=== PATIENT | male | born 1935 | race Caucasian/White ===

== ENCOUNTER 2017-11-24 13:00 | Inpatient (IN) | payer MEDICARE, OTHER ==
[2017-11-28] MEDS ORDERED: CELECOXIB 100 MG CAPSULE PO ONE ×2 (06:00→14:00)
[2017-11-28] MEDS ORDERED: MECLIZINE 25 MG TABLET PO ONE ×2 (06:00→14:00)
[2017-11-28] MEDS ORDERED: METOCLOPRAMIDE 10 MG TABLET PO ONE ×2 (06:00→14:00)
[2017-11-28] MEDS ORDERED: FAMOTIDINE 20MG TABLET PO ONE ×2 (06:00→14:00)
[2017-11-28] MEDS ORDERED: VANCOMYCIN HCL 1,000 MG in DEXTROSE 5 % IN WATER 250 ML IVPB ONE ×2 (06:00)
[2017-11-28] MEDS ORDERED: ACETAMINOPHEN 1,000 MG/100 ML BTL IV ONE ×2 (06:00→14:00)
[2017-11-28 06:51] LABS: ABO GROUP A; RH TYPE POSITIVE
[2017-11-28 06:52] LABS: ANTIBODY SCREEN NEGATIVE (NEGATIVE)
[2017-11-28] MEDS ORDERED: ACETAMINOPHEN W/ CODEINE 300MG/30MG TABLET PO PRN ×2 (08:27)
[2017-11-28] MEDS ORDERED: DIPHENHYDRAMINE HCL 25 MG CAPSULE PO PRN (08:27)
[2017-11-28] MEDS ORDERED: ACETAMINOPHEN W/ CODEINE 300MG/60MG TABLET PO PRN ×2 (08:27)
[2017-11-28] MEDS ORDERED: KETOROLAC 30 MG/ML VIAL IVP PRN ×2 (08:27)
[2017-11-28] MEDS ORDERED: HYDROMORPHONE HCL 2 MG/ML VIAL IM PRN ×2 (08:27)
[2017-11-28] MEDS ORDERED: ACETAMINOPHEN 325 MG TAB PO PRN (08:27)
[2017-11-28] MEDS ORDERED: MAGNESIUM HYDROXIDE 30 ML UDC PO PRN (08:27)
[2017-11-28] MEDS ORDERED: ZOLPIDEM TARTRATE 5 MG TABLET PO PRN (08:27)
[2017-11-28] MEDS ORDERED: ONDANSETRON HCL IV 4 MG/2 ML VIAL IVP PRN (08:27)
[2017-11-28] MEDS ORDERED: BISACODYL 10 MG SUPP RC PRN (08:27)
[2017-11-28] MEDS ORDERED: TRAMADOL HCL 50 MG TABLET PO PRN ×2 (08:27)
[2017-11-28] MEDS ORDERED: NALOXONE 0.4 MG/1 ML VIAL IVP PRN (08:27)
[2017-11-28] MEDS ORDERED: AL HYDROX/MAG HYDROX 30ML UD PO PRN (08:27)
[2017-11-28] MEDS ORDERED: METOCLOPRAMIDE HCL 10 MG/2 ML VIAL IVP PRN (08:27)
[2017-11-28] MEDS ORDERED: HYDROCODONE/APAP 5/325MG TABLET PO PRN ×2 (08:27)
[2017-11-28] MEDS ORDERED: PROMETHAZINE HCL 12.5 MG in 0.9 % SODIUM CHLORIDE 100ML 50 ML IVPB PRN (08:27)
[2017-11-28] MEDS ORDERED: DEXTROSE 5 % AND 0.9 % NACL 1,000 ML IV PRN (10:30)
[2017-11-28] MEDS: HYDROCODONE/APAP 7.5/325MG TABLET PO PRN ×4 (11:23→21:28)
--- NOTE | 2017-11-28 13:31 | Rehab Evaluation ---
Patient Information - Patient Information Diagnosis: R hip OA Ordered Treatment: PT Evaluate and Treat Status: Initial Evaluation Surgery: Yes (R LIZZIE) Date of Surgery: 11/28/17 Past Medical/Surgical Hx: PAST MEDICAL/SURGICAL HISTORY Past Surgical History c scope tonsils and adnoids EGD PMH - Respiratory Hx Respiratory Disorders Yes Comment: hx hayfever PMH - Cardiovascular Hx Cardiovascular Disorders Yes Exercise Tolerance Fair Comment: high cholesterol. activity limited due to hip pain PMH - Neuro Hx Neurological Disorders No PMH - GI Hx Gastrointestinal Disorders Yes Hx Gastroesophageal Reflux Yes Hx Ulcer Yes: esophageal 30 yrs ago Comment: hepatitis A antibodies PMH - Hx Genitourinary Disorders Yes Hx Bladder Problem Yes: frequent small amts on meds PMH - Endocrine Hx Endocrine Disorders No PMH - Musculoskeletal Hx Musculoskeletal Disorders Yes Hx Arthritis Yes: right hip Comment: severe right hip pain PMH - Psych Hx Psychiatric Problems Yes Hx Anxiety Yes: some related to hip pain PMH - Hematology/Oncology Hx Hematology/Oncology Yes Disorders Hx Blood Transfusion Reaction No Premorbid Status: Detail (Patient was previously IND with all mobility and transfers.) Social History: Detail (Patient lives in a two story home with his . Patient will not be using the second floor initially. There are 3 steps to enter the home with two hand rails. There is a walk in shower, and the patient owns a riser seat, grab bars, quad cane, and front wheeled walker.) Precautions: [place], Fall, Other (WBAT on R LE. Hip percautions.) - Time With Patient Total Time Spent With Patient (Min): 30 Treatment Procedures: Detail (Initial evaluation, gait training, exercise education.) Subjective Information - Subjective Information Per Patient (Patient was lying supine in bed upon arrival. Patient reported hip and back being sore but did not rate the pain on the 0-10 scale. Patient is aware of hip percautions.) Objective Data - Pain Pain Present: Yes - Mental Status Patient Orientation: Oriented x3 - Visual Perception Appears within normal limits for therapeutic activities - ROM Not within normal limits (R hip ROM limited due to status post surgery.) - Strength/Tone Not within normal limits (Patient has functional strength during ambulation. R hip strength is limited due to status post surgery.) - Bed Mobility Independent (Patient is IND with supine to sit transfer.) - Transfers Independent (Patient is IND with sit to stand transfers. Patient was educated on hand placement during transfer.) - Balance Balance Sitting: Good Balance Standing: Good - Sensation Intact - Gait Detail (Patient ambulated 100' using a front wheeled walker and supervision for safety. Patient also ambulated a flight of 3 stairs using a cane, hand rail, and supervision for safety. Patient required education on proper stair technique.) Therapy Assessment - Therapy Assessment Detail (Patient has met all IP PT goals. Feel patient will progress well with mobility with continued PT. Patient was left lying supine in bed with call light in reach.) Patient Education - Patient Education Teaching Topic: Exercise/Activity (Quad sets, hamstring sets, glut sets, ankle pumps, heel slides, hip ABD.) Response: Return Demonstration, Verbalize Understanding Teaching Method: Discussion, Demonstration Teaching Recipient: Patient Barriers To Learning: Age Related Problem List - Problem List Physical Therapy Problem List: Detail (1) R hip ROM 2) R hip strength) Goals - Goals Physical Therapy Goals: Patient has met all IP PT goals. Prognosis - Prognosis Good Plan - Plan Physical Therapy Plan: Patient has met all IP PT goals and will be discharged to home PT.
--- NOTE | 2017-11-28 13:52 | Rehab Evaluation ---
Patient Information - Patient Information Diagnosis: R hip OA Ordered Treatment: OT Evaluate and Treat Status: Initial Evaluation Surgery: Yes (R LIZZIE) Date of Surgery: 11/28/17 Past Medical/Surgical Hx: PAST MEDICAL/SURGICAL HISTORY Past Surgical History c scope tonsils and adnoids EGD PMH - Respiratory Hx Respiratory Disorders Yes Comment: hx hayfever PMH - Cardiovascular Hx Cardiovascular Disorders Yes Exercise Tolerance Fair Comment: high cholesterol. activity limited due to hip pain PMH - Neuro Hx Neurological Disorders No PMH - GI Hx Gastrointestinal Disorders Yes Hx Gastroesophageal Reflux Yes Hx Ulcer Yes: esophageal 30 yrs ago Comment: hepatitis A antibodies PMH - Hx Genitourinary Disorders Yes Hx Bladder Problem Yes: frequent small amts on meds PMH - Endocrine Hx Endocrine Disorders No PMH - Musculoskeletal Hx Musculoskeletal Disorders Yes Hx Arthritis Yes: right hip Comment: severe right hip pain PMH - Psych Hx Psychiatric Problems Yes Hx Anxiety Yes: some related to hip pain PMH - Hematology/Oncology Hx Hematology/Oncology Yes Disorders Hx Blood Transfusion Reaction No Premorbid Status: Detail (Patient was previously IND with all mobility, transfers and ADLs.) Social History: Detail (Patient lives in a two story home with his . Patient will not be using the second floor initially. There are 3 steps to enter the home with two hand rails. There is a walk in shower. The patient owns a riser seat, grab bars, quad cane, and front wheeled walker. Pt also has a middle school math teacher.) Precautions: [employer], Fall, Other (WBAT on R LE. Hip percautions.) - Time With Patient Total Time Spent With Patient (Min): 30 (Eval LOW OT) Treatment Procedures: Detail Subjective Information - Subjective Information Per Patient Objective Data - Pain Pain Present: Yes Pain Intensity: 7 (R Hip ) Pain Scale Used: Numeric (1 - 10) - Mental Status Patient Orientation: Oriented x3 - Visual Perception Appears within normal limits for therapeutic activities - ROM Within normal limits (BUE's) - Strength/Tone Within normal limits (BUE's) - Coordination Appears within normal limits for therapeutic activities - Bed Mobility Independent - Transfers Independent - Balance Balance Sitting: Good Balance Standing: Good (Pt able to weight shift side to side while pulling pants over hips unsupported.) - ADL's/IADL's Detail (Pt was instructed on and demonstrated understanding on modified drsg technique using middle school math teacher. He is independent with underwear and pants don using middle school math teacher and wire puller hips. Pt and pt spouse was educated and shown sock aid but pt states that spouse will assist with sock don. Pt was independent with shoe don.) Therapy Assessment - Therapy Assessment Detail (Pt safe and independent using ADL equipment and adhering to hip precautions to complete LB drsg. Pt independent with UB drsg.) Patient Education - Patient Education Teaching Topic: Equipment Use Response: Return Demonstration Teaching Method: Discussion, Demonstration Teaching Recipient: Patient, Significant Other Barriers To Learning: None Problem List - Problem List Physical Therapy Problem List: Detail (1) R hip ROM 2) R hip strength) Goals - Goals Physical Therapy Goals: Patient has met all IP PT goals. Prognosis - Prognosis Good Plan - Plan Physical Therapy Plan: Patient has met all IP PT goals and will be discharged to home PT. Occupational Therapy Plan: No further inpatient OT needed at this time. Pt to be d/c'd from OT.
[2017-11-28] MEDS ORDERED: ONDANSETRON HCL IV 4 MG/2 ML VIAL IVP ONE (14:00)
[2017-11-28] MEDS ORDERED: FENTANYL PF 100MCG/2ML VIAL IV ONE (14:00)
[2017-11-28] MEDS ORDERED: BUPIVACAINE 0.5% W/EPI MPF 30 ML VIAL IVP ONE (14:00)
[2017-11-28] MEDS ORDERED: MIDAZOLAM HCL 2MG/2ML VIAL IV ONE (14:00)
[2017-11-28] MEDS ORDERED: VANCOMYCIN HCL 1 GM VIAL IVPB ONE ×3 (14:00)
[2017-11-28] MEDS ORDERED: LIDOCAINE 2% MDV (20MG/ML) 20ML VIAL IV ONE (14:00)
[2017-11-28] MEDS ORDERED: BUPIVACAINE LIPOSOME 266MG/20ML VIAL IV ONE (14:00)
[2017-11-28] MEDS ORDERED: TRANEXAMIC ACID 1,000 MG/10 ML ML IV ONE ×2 (14:00)
[2017-11-28] MEDS ORDERED: PROPOFOL 10 MG/ML VIAL IV ONE (14:00)
[2017-11-28] MEDS ORDERED: EPHEDRINE SULFATE 50 MG/ML ML IV ONE (14:00)
[2017-11-28] MEDS: VANCOMYCIN HCL 1,000 MG in DEXTROSE 5 % IN WATER 250 ML IVPB SCH ×2 (19:00)
[2017-11-28] MEDS: FERROUS SULFATE 325 MG TAB PO SCH (21:27)
[2017-11-28] MEDS: PANTOPRAZOLE SODIUM 40 MG TABLET PO SCH (21:27)
[2017-11-28] MEDS: DOCUSATE SODIUM 100 MG CAPSULE PO SCH (21:27)
--- NOTE | 2017-11-29 06:04 | RADIOLOGY REPORT ---
EXAM: RIGHT HIP HISTORY: POSTOP. TECHNIQUE: A single AP view of the right hip was performed. FINDINGS: Right hip arthroplasty in satisfactory position. IMPRESSION: STATUS POST RIGHT HIP ARTHROPLASTY. NO COMPLICATING PROCESS. JOB NUMBER: [id number] [facility]
[2017-11-29] MEDS: VANCOMYCIN HCL 1,000 MG in DEXTROSE 5 % IN WATER 250 ML IVPB SCH ×2 (06:26)
[2017-11-29 07:13] LABS: HEMOGLOBIN 11.7 gm/dl (14.0-18.0)
[2017-11-29] MEDS ORDERED: RIVAROXABAN 10 MG TABLET PO SCH (10:00)
[2017-11-29] MEDS ORDERED: CELECOXIB 100 MG CAPSULE PO SCH (10:00)
[2017-11-29] MEDS ORDERED: SIMVASTATIN 20 MG TABLET PO SCH (10:00)
[2017-11-29] MEDS ORDERED: TAMSULOSIN HCL 0.4 MG CAP.ER.24H PO SCH (10:00)
[2017-11-29] MEDS: DOCUSATE SODIUM 100 MG CAPSULE PO SCH (10:03)
[2017-11-29] MEDS: FERROUS SULFATE 325 MG TAB PO SCH (10:04)
[2017-11-29] MEDS: PANTOPRAZOLE SODIUM 40 MG TABLET PO SCH (10:04)
[2017-11-29] MEDS: HYDROCODONE/APAP 7.5/325MG TABLET PO PRN (10:07)
--- NOTE | 2017-11-30 21:51 | Operative Note ---
DATE OF SURGERY: 11/28/2017 PREOPERATIVE DIAGNOSIS: End-stage right hip arthrosis. POSTOPERATIVE DIAGNOSIS: End-stage right hip arthrosis. OPERATION: Right total hip arthroplasty, cemented. SURGEON: James Su M.D. ANESTHESIA: Spinal. Jeffrey Elizabeth CRNA. COMPLICATIONS: None. BLOOD LOSS: 200 mL. OPERATIVE FINDINGS: Severe [id number] hip arthrosis with lateral subluxation and deformity of the femoral head. COMPONENTS PLACED: 2 gram Vancomycin, cemented [employer] Synergy total hip arthroplasty system, size 15 femoral stem, a high offset with a 32 +0 mm [place] Chrome head and a three-hole reflection acetabular shell component with two screw caps, a centrally threaded screw cap, and one acetabular screw 40 mm, and a high crosslinked 35 degree hooded polyethylene liner. INDICATIONS FOR OPERATION: This is an 82-year-old male, who has had persistent pain and dysfunction in his hip for several years. He failed nonoperative treatment and is scheduled for total hip arthroplasty. I explained the risks and benefits to him in detail for his diagnosis and procedures including but not limited to; infection, nerve injury, vessel injury, persistent pain, persistent numbness and tingling in his hip, periprosthetic fracture, need for resection arthroplasty should the components become infected or loosened, nerve injury, vessel injury, blood clot, need for anticoagulation to prevent blood clots and the risks associated with these medications and all of his questions were answered. Rehab and course were outlined and he agreed to proceed. PROCEDURE: The patient was brought to the O.R. and placed in the left lateral decubitus position. His right hip and lower extremity were prepped and draped in a sterile fashion. The right hip was prepped again with ChloraPrep after it was draped. Intraoperative time-out was performed. Next, a posterior approach was marked with the incision making template and infiltrated with 0.5% Marcaine with Epinephrine. The skin and subcutaneous tissues were dissected down. The gluteal fascia was split longitudinally and the subgluteal plane was bluntly dissected. A self-retainer was brought in. I identified the short external rotators and released them off the capsule. I identified the sciatic nerve and carefully protected it at all times. Next, I incised the capsule and released it anteriorly and posteriorly. I dislocated the femoral head. The femoral head was severely deformed, flattened superiorly with massive spurs throughout. We cut the femoral head about 1.5 cm above the lesser trochanter, inserted the boxed osteotome and started reaming by hand with an 8 mm reamer and working in 1 mm increments up to a size 16. We stopped there. Broached to a 14, calcar planed and then a 15, and then a 16 and had a good fit. We plan on using the 15 for cement mantle. Next, attention was turned to the acetabulum. We released the capsule anteriorly , placed an inferior acetabular retractor and the anterior retractor to retract the proximal femur out of the way. We incised the capsule and labrum around the periphery and started reaming in 45 degrees of inclination and 20 degrees of anteversion until we reamed up to a size 55 and then trialed a size 56 shell and it fit nicely. Next, we irrigated copiously. We changed gloves and brought in a clean sheet. We then packed down the real three-hole reflection acetabular shell component with the helicopter guide for 45 degrees of inclination and 20 degrees of anteversion. We tapped it down until it was flush with the medial wall. We then drilled the posterior superior central quadrant screw hole and inserted the 40 mm screw and had excellent purchase. We placed the trial liner and placed the trial stem. We did a trial reduction. Best combination for range of motion and stability and leg lengths was with a high +0 head. This allowed for good abductor tensioning with reduction and distraction, symmetric leg lengths, stability with extension in external rotation, stability with flexion in internal rotation to 60 to 70 degrees before the hip dislocated and this was the size we used. Next, we removed all trial components and irrigated copiously. Next, we inserted the screw caps and the centrally threaded screw cap and impacted down the real polyethylene liner with the huerta in the posterior superior quadrant. We irrigated the femoral canal. We previously mixed antibiotic cement and then placed a cement restrictor distally and injected the cement using third generation cement technique. We removed the suction catheter and then inserted the real stem until the collar was flush to the medial calcar in 15 degrees of anteversion. We held it there until the cement hardened. We cleaned the trunnion and impacted down the real femoral head component. We re-reduced the hip. Final range of motion revealed the same. Next, we irrigated copiously and closed the gluteal fascia with a running #2 Quill suture. We closed the skin deep with #2-0 Vicryl. We injected the wound previously deep, gluteal, short external rotators with our 0.5% Marcaine with Epinephrine, tranexamic acid, and Exparel mixture from deep to superficial. Sterile dressing was applied with Acticoat. This will be changed to REJI dressing prior to discharge. cc: Dr. Keturah Morin JOB NUMBER: [id number] [facility]
== END 2017-11-29 10:15 | disposition home health service (06) | DRG 470 ==
LOC: MEDSURG 11-28 05:54
PROVIDERS: ADMIT Orthopaedic Surgery; ATTEND Orthopaedic Surgery
PROC: 0SR9069 Replacement of Right Hip Joint with Oxidized Zirconium on Polyethylene Synthetic Substitute, Cemented, Open Approach (ICD-10-PCS; principal; 2017-11-28 08:00)
DX: M16.11 Unilateral primary osteoarthritis, right hip (principal); E78.00 Pure hypercholesterolemia, unspecified; K21.9 Gastro-esophageal reflux disease without esophagitis
CPT/HCPCS: 85014; 85018; 86850; 86900; 86901; J2405; J7060